=== PATIENT | male | born 1950 | race Caucasian/White ===

== ENCOUNTER 2018-01-01 15:45 | Emergency (ER) | payer MEDICARE, MEDICAID ==
[~2018-01-01] VITALS: Ht 170.2 cm; Wt 70.0 kg
[2018-01-01] MEDS ORDERED: ACETAMINOPHEN 325MG TABLET PO ONE (18:45)
[2018-01-01] MEDS ORDERED: KETOROLAC 15MG/ML VIAL IV ONE (18:45)
[2018-01-01] MEDS ORDERED: SODIUM CHLORIDE 0.9% 1000ML BAG (SEPSIS BOLUS) IV ONE (18:45)
[2018-01-01] MEDS: SODIUM CHLORIDE 0.9% 2,100 ML IV SCH ×2 (19:15→19:23)
[2018-01-01 19:44] LABS: BASOPHILS % 0.6 % (0.0-2.0); EOSINOPHILS % 0.9 % (0.0-5.0); HEMATOCRIT. 32.8 % (42.0-52.0); HEMOGLOBIN. 11.3 g/dL (14.0-18.0); LYMPHOCYTES % 19.9 % (20.0-50.0); MEAN CORPUSCULAR HEMOGLOBIN 29.8 pg (28.0-32.0); MEAN CORPUSCULAR VOLUME 86.3 fL (80.0-94.0); MEAN PLATELET VOLUME 9.3 fl (7.4-10.4); MONOCYTES % 3.9 % (2.0-8.0); NEUTROPHILS % 74.7 % (40.0-76.0); PLATELET 171 x1000/uL (130-400); RED CELL DISTRIBUTION WIDTH 13.3 % (11.6-14.6)
[2018-01-01 19:47] LABS: CLARITY URINE CLEAR (CLEAR); COLOR URINE YELLOW (YELLOW); KETONES URINE NEGATIVE (NEGATIVE); LEUKOCYTE ESTERASE URINE NEGATIVE (NEGATIVE); NITRITE URINE NEGATIVE (NEGATIVE); OCCULT BLOOD URINE NEGATIVE (NEGATIVE); PH URINE >=9.0 (4.5-8.0); PROTEIN URINE NEGATIVE (NEGATIVE); SPECIFIC GRAVITY URINE 1.016 (1.005-1.030); UROBILINOGEN URINE 0.2 E.U./dL (0.2-1.0)
[2018-01-01 19:48] LABS: CHLORIDE 103 mEq/L (98-107)
[2018-01-01 20:11] LABS: INR 1.1; PROTHROMBIN TIME 11.4 sec (9.4-11.6)
[2018-01-01] MEDS ORDERED: MORPHINE SULFATE 2 MG/ML CPJ (NOT FOR IM USE) IV ONE (21:45)
[2018-01-01 22:08] VITALS: BP 112/59
== END 2018-01-01 22:16 | disposition home or self-care (01) ==
LOC: ER 16:06 → CANBEDREQ 23:21
DX: R10.84 Generalized abdominal pain (principal); M79.1 Myalgia; G89.29 Other chronic pain; M54.5 Low back pain; R42 Dizziness and giddiness; D64.9 Anemia, unspecified; M19.90 Unspecified osteoarthritis, unspecified site; I10 Essential (primary) hypertension
CPT/HCPCS: 36415; 71045; 74176; 80053; 81003; 83605; 83690; 85025; 85610; 87040; 87086; 93005; 96374; 96375; 99285; J1885; J2270; J7030

== ENCOUNTER 2019-07-28 22:19 | Inpatient (IN) | payer MEDICARE, MEDICAID ==
[~2019-07-28] VITALS: Ht 175.3 cm; Wt 65.4 kg
[~2019-07-28 22:19] MED LIST: FLUO20CA39 MT; LISI-604 MT
[2019-07-28] MEDS ORDERED: SODIUM CHLORIDE 0.9% 1,000 ML IV ONE (23:22)
[2019-07-28] MEDS ORDERED: ONDANSETRON HCL 4MG/2ML INJ IV STA (23:22)
[2019-07-29] VITALS (33 sets, daily range): BP systolic 99–172; BP diastolic 52–118
[2019-07-29 00:06] LABS: BASOPHILS % 1.2 % (0.0-2.0); EOSINOPHILS % 3.6 % (0.0-5.0); HEMATOCRIT. 34.7 % (42.0-52.0); HEMOGLOBIN. 12.2 g/dL (14.0-18.0); LYMPHOCYTES % 26.6 % (20.0-50.0); MEAN CORPUSCULAR HEMOGLOBIN 29.9 pg (28.0-32.0); MEAN CORPUSCULAR VOLUME 85.1 fL (80.0-94.0); MEAN PLATELET VOLUME 9.4 fl (7.4-10.4); NEUTROPHILS % 62.6 % (40.0-76.0); PLATELET 160 x1000/uL (130-400); RED BLOOD CELL COUNT 4.07 mill/uL (4.7-6.1); RED CELL DISTRIBUTION WIDTH 13.5 % (11.6-14.6)
[2019-07-29 00:19] LABS: CHLORIDE 86 mEq/L (98-107)
[2019-07-29] MEDS ORDERED: SODIUM CHLORIDE 0.9% 1,000 ML IV ONE (01:30)
[2019-07-29] MEDS ORDERED: ONDANSETRON HCL 4MG/2ML INJ IV ONE (06:30)
[2019-07-29 06:59] LABS: CHLORIDE 87 mEq/L (98-107)
[2019-07-29] MEDS: MORPHINE SULFATE 2 MG/ML CPJ (NOT FOR IM USE) IV PRN ×2 (10:28→20:48)
[2019-07-29] MEDS ORDERED: LORAZEPAM 0.5MG TABLET PO PRN (10:45)
[2019-07-29] MEDS ORDERED: IPRATROPIUM/ALBUTEROL 0.5-3(2.5)MG/3ML NEB NEB PRN (10:45)
[2019-07-29] MEDS ORDERED: CLONIDINE 0.1MG TABLET PO PRN (10:45)
[2019-07-29] MEDS ORDERED: NA PHOS,M-B/NA PHOS,DI-BA ENEMA 118ML PR PRN (10:45)
[2019-07-29] MEDS ORDERED: MAGNESIUM/ALUMINUM HYDROXIDE/SIMETHICONE 30ML UDC PO PRN (10:45)
[2019-07-29] MEDS ORDERED: SODIUM CHLORIDE 0.9% 1,000 ML IV SCH (10:45)
[2019-07-29] MEDS ORDERED: GUAIFENESIN 200MG/10ML SUGAR FREE UDC PO PRN (10:45)
[2019-07-29] MEDS ORDERED: ACETAMINOPHEN 325MG TABLET PO PRN (10:45)
[2019-07-29] MEDS ORDERED: ACETAMINOPHEN 650MG SUPP PR PRN (10:45)
[2019-07-29] MEDS ORDERED: DOCUSATE SODIUM 100MG CAPSULE PO PRN (10:45)
[2019-07-29] MEDS ORDERED: DIPHENHYDRAMINE 50MG/ML VIAL IV PRN (10:45)
[2019-07-29 11:19] LABS: BG BASE EXCESS -2.7 mmol/L (-2.0-2.0); BG CARBOXYHEMOGLOBIN 0.4 % (0.5-1.5); BG DEOXYHEMOGLOBIN 2.7 % (0.0-5.0); BG FRACTION INSPIRED OXYGEN 21; BG HCO3 ACT 21.1 mmol/L (22.0-26.0); BG METHEMOGLOBIN 0.3 % (0.0-1.5); BG OXYGEN SATURATION 97.3 % (92.0-98.5); BG OXYHEMOGLOBIN 96.6 % (94.0-97.0); BG PCO2 33.6 mmHg (35.0-45.0); BG PH 7.416 (7.350-7.450); BG PO2 94.2 mmHg (75.0-100.0); BG SAMPLE SITE RIGHT RADIAL; BG TOTAL HEMOGLOBIN 11.9 g/dL (12.0-18.0); BG VENT MODE ROOM AIR
[2019-07-29] MEDS: ONDANSETRON HCL 4MG/2ML INJ IV PRN (12:21)
[2019-07-29] MEDS ORDERED: SODIUM CHLORIDE 3% 500 ML IV SCH (12:30)
[2019-07-29 14:37] LABS: CLARITY URINE CLEAR (CLEAR); COLOR URINE YELLOW (YELLOW); KETONES URINE 1+ (NEGATIVE); LEUKOCYTE ESTERASE URINE NEGATIVE (NEGATIVE); NITRITE URINE NEGATIVE (NEGATIVE); OCCULT BLOOD URINE 1+ (NEGATIVE); PH URINE 7.5 (4.5-8.0); PROTEIN URINE NEGATIVE (NEGATIVE); SPECIFIC GRAVITY URINE 1.012 (1.005-1.030); UROBILINOGEN URINE 0.2 E.U./dL (0.2-1.0)
[2019-07-29 14:38] LABS: PHOSPHORUS 2.9 mg/dL (2.5-4.9)
[2019-07-29] MEDS ORDERED: MAGNESIUM 1 G PREMIX 100 ML IV SCH (15:15)
[2019-07-29 15:20] LABS: SODIUM URINE RANDOM 153 mEq/L
[2019-07-29 15:26] LABS: *BARBITURATES SCREEN URINE NEGATIVE (NEGATIVE); *BENZODIAZEPINES SCREEN URINE NEGATIVE (NEGATIVE)
[2019-07-29 15:27] LABS: *AMPHETAMINES SCREEN URINE NEGATIVE (NEGATIVE); *COCAINE SCREEN URINE NEGATIVE (NEGATIVE); CANNABINOID URINE SCREEN NEGATIVE (NEGATIVE); METHADONE URINE SCREEN NEGATIVE (NEGATIVE); OPIATES URINE SCREEN PRESUMTIVE POSITIVE (NEGATIVE)
[2019-07-29 15:28] LABS: PHENCYCLIDINE URINE SCREEN NEGATIVE (NEGATIVE)
[2019-07-29 17:26] LABS: CHLORIDE 89 mEq/L (98-107)
[2019-07-29] MEDS ORDERED: SODIUM CHLORIDE 3% 500 ML IV NR (18:45)
[2019-07-29] MEDS: DEXT 5%/0.9% NACL 1,000 ML IV SCH (18:57)
[2019-07-29 19:42] LABS: CHLORIDE 89 mEq/L (98-107)
[2019-07-29] MEDS ORDERED: FUROSEMIDE 40MG/4ML VIAL IVP SCH (21:00)
[2019-07-30] VITALS (29 sets, daily range): BP systolic 85–155; BP diastolic 37–89
[2019-07-30 00:08] LABS: CHLORIDE 92 mEq/L (98-107)
[2019-07-30] MEDS: MORPHINE SULFATE 2 MG/ML CPJ (NOT FOR IM USE) IV PRN ×2 (02:42→12:04)
[2019-07-30 05:51] LABS: CHLORIDE 94 mEq/L (98-107)
[2019-07-30 06:01] LABS: LDL CHOLESTEROL 118 mg/dL (5-100)
[2019-07-30 06:03] LABS: T4 FREE 0.48 ng/dL (0.76-1.46)
[2019-07-30 06:04] LABS: HDL CHOLESTEROL 56 mg/dL (40-59)
[2019-07-30 06:05] LABS: BASOPHILS % 1.1 % (0.0-2.0); EOSINOPHILS % 2.3 % (0.0-5.0); HEMATOCRIT. 30.2 % (42.0-52.0); HEMOGLOBIN. 10.9 g/dL (14.0-18.0); LYMPHOCYTES % 25.9 % (20.0-50.0); MEAN CORPUSCULAR HEMOGLOBIN 30.5 pg (28.0-32.0); MEAN CORPUSCULAR VOLUME 84.9 fL (80.0-94.0); MEAN PLATELET VOLUME 9.9 fl (7.4-10.4); MONOCYTES % 9.5 % (2.0-8.0); NEUTROPHILS % 61.2 % (40.0-76.0); PLATELET 134 x1000/uL (130-400); RED BLOOD CELL COUNT 3.56 mill/uL (4.7-6.1); RED CELL DISTRIBUTION WIDTH 13.5 % (11.6-14.6)
[2019-07-30] MEDS: DEXT 5%/0.9% NACL 1,000 ML IV SCH ×2 (06:16→18:23)
[2019-07-30] MEDS: FAMOTIDINE 20MG/2ML VIAL IV SCH (09:35)
[2019-07-30] MEDS: ONDANSETRON HCL 4MG/2ML INJ IV PRN ×2 (10:19→20:27)
[2019-07-30 14:21] LABS: CHLORIDE 95 mEq/L (98-107)
[2019-07-30 16:06] LABS: SODIUM URINE (RAW) 114 mEq/L; SODIUM URINE 24 HR 210 mEq/24hr (40-220)
[2019-07-30 17:51] LABS: CHLORIDE 94 mEq/L (98-107); INR 1.1
[2019-07-30] MEDS: HYDROCODONE/ACETAMINOPHEN 5/325MG TABLET PO PRN (18:25)
[2019-07-31] VITALS: BP 111/50
[2019-07-31] MEDS: DEXT 5%/0.9% NACL 1,000 ML IV SCH ×2 (01:54→13:58)
[2019-07-31 04:00] VITALS: BP 104/47
[2019-07-31 08:10] VITALS: BP 137/55
[2019-07-31] MEDS: FAMOTIDINE 20MG/2ML VIAL IV SCH (09:30)
[2019-07-31 10:30] LABS: CHLORIDE 95 mEq/L (98-107)
[2019-07-31] MEDS: HYDROCODONE/ACETAMINOPHEN 5/325MG TABLET PO PRN (11:29)
[2019-07-31 12:23] VITALS: BP 138/54
[2019-07-31 16:41] VITALS: BP 109/67
[2019-07-31] MEDS: MORPHINE SULFATE 2 MG/ML CPJ (NOT FOR IM USE) IV PRN (19:51)
[2019-07-31 20:00] VITALS: BP 119/61
[2019-07-31] MEDS ORDERED: POTASSIUM CHLORIDE 20MEQ/PACKET PO SCH (22:00)
[2019-08-01] VITALS: BP 110/47
[2019-08-01 04:00] VITALS: BP 106/48
[2019-08-01] MEDS: DEXT 5%/0.9% NACL 1,000 ML IV SCH (06:03)
[2019-08-01] MEDS: SODIUM CHLORIDE 1000MG TABLET PO SCH ×4 (08:33→20:52)
[2019-08-01] MEDS: FAMOTIDINE 20MG/2ML VIAL IV SCH (08:35)
[2019-08-01 09:26] LABS: PHOSPHORUS 2.3 mg/dL (2.5-4.9)
[2019-08-01] MEDS: HYDROCODONE/ACETAMINOPHEN 5/325MG TABLET PO PRN (10:08)
[2019-08-01 12:00] VITALS: BP 133/58
[2019-08-01] MEDS: MORPHINE SULFATE 2 MG/ML CPJ (NOT FOR IM USE) IV PRN (17:21)
[2019-08-01 20:00] VITALS: BP 112/52
[2019-08-01] MEDS: ONDANSETRON HCL 4MG/2ML INJ IV PRN (20:57)
[2019-08-02] VITALS: BP 122/54
[2019-08-02] MEDS: MORPHINE SULFATE 2 MG/ML CPJ (NOT FOR IM USE) IV PRN ×2 (02:11→20:35)
[2019-08-02 04:00] VITALS: BP 133/57
[2019-08-02 08:06] VITALS: BP 133/63
[2019-08-02] MEDS: DEXT 5%/0.9% NACL 1,000 ML IV SCH (08:13)
[2019-08-02] MEDS: SODIUM CHLORIDE 1000MG TABLET PO SCH ×4 (09:00→20:35)
[2019-08-02] MEDS: FAMOTIDINE 20MG/2ML VIAL IV SCH (09:13)
[2019-08-02 12:06] VITALS: BP 133/59
[2019-08-02] MEDS: SODIUM CHLORIDE 0.9% 1,000 ML IV SCH (14:37)
[2019-08-02] MEDS: HYDROCODONE/ACETAMINOPHEN 5/325MG TABLET PO PRN ×2 (14:52→22:14)
[2019-08-02 15:52] LABS: BASOPHILS % 1.4 % (0.0-2.0); EOSINOPHILS % 10.8 % (0.0-5.0); HEMATOCRIT. 31.6 % (42.0-52.0); HEMOGLOBIN. 11.1 g/dL (14.0-18.0); LYMPHOCYTES % 24.2 % (20.0-50.0); MEAN CORPUSCULAR HEMOGLOBIN 30.4 pg (28.0-32.0); MEAN CORPUSCULAR VOLUME 86.4 fL (80.0-94.0); MEAN PLATELET VOLUME 9.3 fl (7.4-10.4); MONOCYTES % 7.3 % (2.0-8.0); NEUTROPHILS % 56.3 % (40.0-76.0); PLATELET 171 x1000/uL (130-400); RED BLOOD CELL COUNT 3.66 mill/uL (4.7-6.1); RED CELL DISTRIBUTION WIDTH 13.3 % (11.6-14.6)
[2019-08-02 16:08] VITALS: BP 130/60
[2019-08-02 17:33] LABS: CHLORIDE 94 mEq/L (98-107)
[2019-08-02 20:00] VITALS: BP 126/60
[2019-08-02] MEDS: ONDANSETRON HCL 4MG/2ML INJ IV PRN (20:35)
[2019-08-03] VITALS: BP 142/55
[2019-08-03] MEDS: SODIUM CHLORIDE 0.9% 1,000 ML IV SCH ×3 (03:18→05:40)
[2019-08-03 04:00] VITALS: BP 112/52
[2019-08-03 07:12] LABS: BASOPHILS % 1.8 % (0.0-2.0); EOSINOPHILS % 10.8 % (0.0-5.0); HEMATOCRIT. 29.3 % (42.0-52.0); HEMOGLOBIN. 10.5 g/dL (14.0-18.0); LYMPHOCYTES % 31.9 % (20.0-50.0); MEAN CORPUSCULAR HEMOGLOBIN 30.4 pg (28.0-32.0); MEAN CORPUSCULAR VOLUME 85.2 fL (80.0-94.0); MEAN PLATELET VOLUME 9.1 fl (7.4-10.4); MONOCYTES % 9.9 % (2.0-8.0); NEUTROPHILS % 45.6 % (40.0-76.0); PLATELET 166 x1000/uL (130-400); RED BLOOD CELL COUNT 3.44 mill/uL (4.7-6.1); RED CELL DISTRIBUTION WIDTH 13.1 % (11.6-14.6)
[2019-08-03 08:00] VITALS: BP 123/58
[2019-08-03 08:00] LABS: CHLORIDE 95 mEq/L (98-107)
[2019-08-03] MEDS: FAMOTIDINE 20MG/2ML VIAL IV SCH (09:33)
[2019-08-03] MEDS: SODIUM CHLORIDE 1000MG TABLET PO SCH ×4 (09:33→21:13)
[2019-08-03 12:00] VITALS: BP 133/61
[2019-08-03 16:00] VITALS: BP 147/66
[2019-08-03 18:16] LABS: CHLORIDE 94 mEq/L (98-107)
[2019-08-03 20:00] VITALS: BP 134/64
[2019-08-03] MEDS: HYDROCODONE/ACETAMINOPHEN 5/325MG TABLET PO PRN (21:23)
[2019-08-04] VITALS (7 sets, daily range): BP systolic 117–132; BP diastolic 54–60
[2019-08-04] MEDS: SODIUM CHLORIDE 0.9% 1,000 ML IV SCH (02:37)
[2019-08-04 06:53] LABS: CHLORIDE 96 mEq/L (98-107)
[2019-08-04 08:16] LABS: BASOPHILS % 1.2 % (0.0-2.0); EOSINOPHILS % 11.6 % (0.0-5.0); HEMOGLOBIN. 10.4 g/dL (14.0-18.0); LYMPHOCYTES % 28.8 % (20.0-50.0); MEAN CORPUSCULAR HEMOGLOBIN 30.9 pg (28.0-32.0); MEAN CORPUSCULAR VOLUME 85.8 fL (80.0-94.0); MEAN PLATELET VOLUME 8.9 fl (7.4-10.4); NEUTROPHILS % 50.4 % (40.0-76.0); PLATELET 179 x1000/uL (130-400); RED BLOOD CELL COUNT 3.38 mill/uL (4.7-6.1); RED CELL DISTRIBUTION WIDTH 13.2 % (11.6-14.6)
[2019-08-04] MEDS: FAMOTIDINE 20MG/2ML VIAL IV SCH (09:08)
[2019-08-04] MEDS: SODIUM CHLORIDE 1000MG TABLET PO SCH ×4 (09:08→21:37)
[2019-08-04] MEDS ORDERED: SODIUM CHLORIDE 3% 500 ML IV NR (11:00)
[2019-08-04] MEDS: HYDROCODONE/ACETAMINOPHEN 5/325MG TABLET PO PRN ×2 (15:30→21:53)
[2019-08-04 16:31] LABS: CHLORIDE 97 mEq/L (98-107)
== END 2019-08-04 22:05 | DRG 641 ==
LOC: ER 22:19 → MICUSO 07-29 01:34 → EDBEDREQSVC 07-29 01:45 → EDBEDREQ 07-29 01:45 → EDBEDREQDT 07-29 01:45 → EDBEDREQTM 07-29 01:45 → ENRESERV 07-29 08:25 → 6WST 07-30 12:15
PROVIDERS: ADMIT Internal Medicine; ATTEND Internal Medicine
DX: E87.1 Hypo-osmolality and hyponatremia (principal); D64.9 Anemia, unspecified; I10 Essential (primary) hypertension; M17.0 Bilateral primary osteoarthritis of knee; F41.9 Anxiety disorder, unspecified; G89.29 Other chronic pain; M54.2 Cervicalgia; M54.9 Dorsalgia, unspecified; E83.42 Hypomagnesemia; E16.2 Hypoglycemia, unspecified; Z85.841 Personal history of malignant neoplasm of brain; Z79.899 Other long term (current) drug therapy
CPT/HCPCS: 36415; 36600; 71045; 73560; 73721; 74176; 80048; 80051; 80053; 80061; 80305; 81003; 82375; 82805; 82962; 83605; 83735; 83930; 83935; 84100; 84300; 84439; 84443; 84484; 85025; 86850; 86900; 93005; 93306; 93970; 97162; 97165; 99291; J1940; J2270; J2405; J3475; J3490; J7030; J7042

== ENCOUNTER 2019-10-01 23:25 | Inpatient (IN) | payer MEDICARE, MEDICAID ==
[~2019-10-01] VITALS: Ht 172.7 cm; Wt 60.4 kg
[2019-10-02] VITALS (9 sets, daily range): BP systolic 108–145; BP diastolic 53–101
[2019-10-02] MEDS ORDERED: ONDANSETRON HCL 4MG/2ML INJ IV STA (00:18)
[2019-10-02] MEDS ORDERED: MORPHINE SULFATE 4 MG/ML CPJ (NOT FOR IM USE) IV STA (00:18)
[2019-10-02] MEDS ORDERED: KETOROLAC 30MG/ML VIAL IV STA (00:18)
[2019-10-02] MEDS ORDERED: SODIUM CHLORIDE 0.9% 1,000 ML IV ONE (00:18)
[2019-10-02 00:37] LABS: BASOPHILS % 1.8 % (0.0-2.0); EOSINOPHILS % 2.5 % (0.0-5.0); HEMATOCRIT. 32.6 % (42.0-52.0); HEMOGLOBIN. 11.4 g/dL (14.0-18.0); LYMPHOCYTES % 29.5 % (20.0-50.0); MEAN CORPUSCULAR HEMOGLOBIN 29.6 pg (28.0-32.0); MEAN CORPUSCULAR VOLUME 84.9 fL (80.0-94.0); MEAN PLATELET VOLUME 9.5 fl (7.4-10.4); MONOCYTES % 5.1 % (2.0-8.0); NEUTROPHILS % 61.1 % (40.0-76.0); PLATELET 208 x1000/uL (130-400); RED BLOOD CELL COUNT 3.84 mill/uL (4.7-6.1); RED CELL DISTRIBUTION WIDTH 14.4 % (11.6-14.6)
[2019-10-02 00:43] LABS: CHLORIDE 91 mEq/L (98-107)
[2019-10-02] MEDS ORDERED: ONDANSETRON HCL 4MG/2ML INJ IV NR (01:45)
[2019-10-02] MEDS ORDERED: DEXTROSE 50% WATER 50ML SYRINGE IV NR (01:45)
[2019-10-02] MEDS ORDERED: METOCLOPRAMIDE HCL 10MG/2ML VIAL IV NR (01:45)
[2019-10-02] MEDS ORDERED: MAGNESIUM CITRATE 300ML SOLUTION PO NR (03:45)
[2019-10-02] MEDS ORDERED: SODIUM CHLORIDE 0.9% 500 ML IV NR (03:45)
[2019-10-02] MEDS ORDERED: DEXTROSE 50% WATER 50ML SYRINGE IV ONE ×4 (04:47→17:58)
[2019-10-02] MEDS ORDERED: DEXT 5%/0.9% NACL 1,000 ML IV ONE (05:30)
[2019-10-02] MEDS ORDERED: SORBITOL 70% SOLN 30ML PO SCH (11:15)
[2019-10-02] MEDS ORDERED: BISACODYL 10MG SUPP PR PRN (11:15)
[2019-10-02] MEDS ORDERED: DEXT 5%/0.9% NACL 1,000 ML IV SCH (11:15)
[2019-10-02] MEDS ORDERED: SODIUM CHLORIDE 0.9% 500 ML IV ONE (12:00)
[2019-10-02] MEDS: DOCUSATE SODIUM 250MG CAPSULE PO SCH (12:25)
[2019-10-02 16:04] LABS: CHLORIDE 95 mEq/L (98-107)
[2019-10-02] MEDS: ONDANSETRON HCL 4MG/2ML INJ IV PRN (17:38)
[2019-10-02] MEDS ORDERED: DEXT 10% WATER 1,000 ML IV SCH (18:30)
[2019-10-02] MEDS: DEXTROSE 50% WATER 50ML SYRINGE IV PRN ×2 (18:48→21:18)
[2019-10-02] MEDS: ACETAMINOPHEN 325MG TABLET PO PRN (20:24)
[2019-10-03] VITALS (14 sets, daily range): BP systolic 102–149; BP diastolic 51–77
[2019-10-03] MEDS: DEXTROSE 5% WATER 1,000 ML IV SCH (00:34)
[2019-10-03] MEDS: SODIUM CHLORIDE 0.9% 1,000 ML IV SCH ×2 (00:35→13:19)
[2019-10-03 06:20] LABS: EOSINOPHILS % 4.1 % (0.0-5.0); HEMATOCRIT. 26.9 % (42.0-52.0); HEMOGLOBIN. 9.6 g/dL (14.0-18.0); LYMPHOCYTES % 33.5 % (20.0-50.0); MEAN CORPUSCULAR HEMOGLOBIN 30.2 pg (28.0-32.0); MEAN CORPUSCULAR VOLUME 84.5 fL (80.0-94.0); MEAN PLATELET VOLUME 10.1 fl (7.4-10.4); MONOCYTES % 7.4 % (2.0-8.0); PLATELET 153 x1000/uL (130-400); RED BLOOD CELL COUNT 3.18 mill/uL (4.7-6.1); RED CELL DISTRIBUTION WIDTH 14.1 % (11.6-14.6)
[2019-10-03 06:22] LABS: CHLORIDE 96 mEq/L (98-107)
[2019-10-03 07:09] LABS: CLARITY URINE CLEAR (CLEAR); COLOR URINE YELLOW (YELLOW); KETONES URINE NEGATIVE (NEGATIVE); LEUKOCYTE ESTERASE URINE TRACE (NEGATIVE); NITRITE URINE NEGATIVE (NEGATIVE); OCCULT BLOOD URINE 2+ (NEGATIVE); PROTEIN URINE NEGATIVE (NEGATIVE)
[2019-10-03] MEDS: ACETAMINOPHEN 325MG TABLET PO PRN ×2 (08:54→18:39)
[2019-10-03] MEDS: DOCUSATE SODIUM 250MG CAPSULE PO SCH (09:00)
[2019-10-03] MEDS: BLOOD SUGAR DIAGNOSTIC STRIP TEST SCH ×3 (13:14→20:43)
[2019-10-03] MEDS: DEXTROSE 50% WATER 50ML SYRINGE IV PRN (17:17)
[2019-10-04] VITALS (14 sets, daily range): BP systolic 118–157; BP diastolic 61–74
[2019-10-04] MEDS: SODIUM CHLORIDE 0.9% 1,000 ML IV SCH (00:23)
[2019-10-04] MEDS: DEXTROSE 5% WATER 1,000 ML IV SCH (00:23)
[2019-10-04 06:33] LABS: BASOPHILS % 1.6 % (0.0-2.0); HEMATOCRIT. 26.6 % (42.0-52.0); HEMOGLOBIN. 9.4 g/dL (14.0-18.0); LYMPHOCYTES % 38.5 % (20.0-50.0); MEAN CORPUSCULAR HEMOGLOBIN 29.9 pg (28.0-32.0); MEAN CORPUSCULAR VOLUME 84.1 fL (80.0-94.0); MEAN PLATELET VOLUME 10.1 fl (7.4-10.4); MONOCYTES % 7.5 % (2.0-8.0); NEUTROPHILS % 45.4 % (40.0-76.0); PLATELET 159 x1000/uL (130-400); RED BLOOD CELL COUNT 3.16 mill/uL (4.7-6.1); RED CELL DISTRIBUTION WIDTH 13.8 % (11.6-14.6)
[2019-10-04 06:55] LABS: CHLORIDE 91 mEq/L (98-107)
[2019-10-04] MEDS: BLOOD SUGAR DIAGNOSTIC STRIP TEST SCH ×4 (08:01→21:00)
[2019-10-04] MEDS: DOCUSATE SODIUM 250MG CAPSULE PO SCH (09:00)
[2019-10-04] MEDS: ONDANSETRON HCL 4MG/2ML INJ IV PRN ×2 (09:00→17:31)
[2019-10-04] MEDS ORDERED: SODIUM CHLORIDE 3% 500 ML IV ONE (12:00)
[2019-10-04] MEDS: ACETAMINOPHEN 325MG TABLET PO PRN (12:42)
[2019-10-04] MEDS ORDERED: DIPHENHYDRAMINE 25MG CAPSULE PO NR (15:15)
[2019-10-04] MEDS ORDERED: LACTULOSE 20G/30ML UDC PO PRN (15:15)
[2019-10-04] MEDS ORDERED: FUROSEMIDE 40MG/4ML VIAL IVP NR (17:00)
[2019-10-04 17:09] LABS: CHLORIDE 90 mEq/L (98-107)
[2019-10-04 18:02] LABS: INR 1.1
[2019-10-04] MEDS: DEXTROSE 50% WATER 50ML SYRINGE IV PRN (21:19)
[2019-10-04] MEDS: HYDROCODONE/ACETAMINOPHEN 5/325MG TABLET PO PRN (22:37)
[2019-10-04 23:47] LABS: CHLORIDE 89 mEq/L (98-107)
[2019-10-05] VITALS (12 sets, daily range): BP systolic 111–143; BP diastolic 55–77
[2019-10-05] MEDS: DEXT 5%/0.9% NACL 1,000 ML IV SCH (03:45)
[2019-10-05 06:47] LABS: HEMATOCRIT 29.7 % (42.0-52.0); HEMOGLOBIN 10.5 g/dL (14.0-18.0); MEAN CORPUSCULAR VOLUME 84.6 fL (80.0-94.0); PLATELET 167 x1000/uL (130-400); RED BLOOD CELL COUNT 3.51 mill/uL (4.7-6.1); RED CELL DISTRIBUTION WIDTH 13.9 % (11.6-14.6)
[2019-10-05 07:09] LABS: CHLORIDE 90 mEq/L (98-107)
[2019-10-05] MEDS: BLOOD SUGAR DIAGNOSTIC STRIP TEST SCH ×4 (07:58→21:58)
[2019-10-05] MEDS: DOCUSATE SODIUM 250MG CAPSULE PO SCH (09:02)
[2019-10-05] MEDS ORDERED: SODIUM CHLORIDE 3% 500 ML IV NR (12:00)
[2019-10-05 13:35] LABS: SODIUM URINE RANDOM 149 mEq/L
[2019-10-05 15:50] LABS: CHLORIDE 91 mEq/L (98-107)
[2019-10-05] MEDS: HYDROCODONE/ACETAMINOPHEN 5/325MG TABLET PO PRN ×2 (16:22→21:57)
[2019-10-05] MEDS: DEXTROSE 50% WATER 50ML SYRINGE IV PRN ×2 (16:27→21:58)
[2019-10-05] MEDS ORDERED: BLOOD SUGAR DIAGNOSTIC STRIP TEST SCH (17:30)
[2019-10-06] VITALS (11 sets, daily range): BP systolic 101–137; BP diastolic 50–68
[2019-10-06] MEDS: DEXT 5%/0.9% NACL 1,000 ML IV SCH (00:18)
[2019-10-06] MEDS ORDERED: FUROSEMIDE 40MG/4ML VIAL IV SCH (01:00)
[2019-10-06] MEDS: BLOOD SUGAR DIAGNOSTIC STRIP TEST SCH ×6 (02:00→22:14)
[2019-10-06] MEDS: DEXTROSE 50% WATER 50ML SYRINGE IV PRN ×2 (02:25→06:41)
[2019-10-06 07:05] LABS: BASOPHILS % 2.3 % (0.0-2.0); EOSINOPHILS % 10.1 % (0.0-5.0); HEMATOCRIT. 30.9 % (42.0-52.0); HEMOGLOBIN. 10.8 g/dL (14.0-18.0); LYMPHOCYTES % 32.5 % (20.0-50.0); MEAN CORPUSCULAR HEMOGLOBIN 29.5 pg (28.0-32.0); MEAN CORPUSCULAR VOLUME 84.7 fL (80.0-94.0); MEAN PLATELET VOLUME 9.4 fl (7.4-10.4); MONOCYTES % 6.6 % (2.0-8.0); NEUTROPHILS % 48.5 % (40.0-76.0); PLATELET 185 x1000/uL (130-400); RED BLOOD CELL COUNT 3.65 mill/uL (4.7-6.1); RED CELL DISTRIBUTION WIDTH 14.2 % (11.6-14.6)
[2019-10-06 07:21] LABS: CHLORIDE 94 mEq/L (98-107)
[2019-10-06 07:28] LABS: PHOSPHORUS 2.6 mg/dL (2.5-4.9)
[2019-10-06] MEDS: DOCUSATE SODIUM 250MG CAPSULE PO SCH (09:00)
[2019-10-06] MEDS ORDERED: SODIUM CHLORIDE 3% 500 ML IV SCH (11:00)
[2019-10-06] MEDS ORDERED: COSYNTROPIN 0.25MG/ML VIAL IV NR (12:00)
[2019-10-06] MEDS: SODIUM CHLORIDE 3% 500 ML IV SCH (12:34)
[2019-10-06] MEDS: HYDROCODONE/ACETAMINOPHEN 5/325MG TABLET PO PRN ×2 (14:30→22:04)
[2019-10-06 16:55] LABS: CHLORIDE 95 mEq/L (98-107)
[2019-10-07] VITALS: BP 102/58
[2019-10-07] MEDS: BLOOD SUGAR DIAGNOSTIC STRIP TEST SCH ×5 (02:13→18:00)
[2019-10-07 04:00] VITALS: BP 110/56
[2019-10-07 05:53] LABS: CHLORIDE 99 mEq/L (98-107)
[2019-10-07 06:07] LABS: T4 FREE 0.51 ng/dL (0.76-1.46)
[2019-10-07 06:28] LABS: BASOPHILS % 0.9 % (0.0-2.0); EOSINOPHILS % 5.8 % (0.0-5.0); HEMATOCRIT. 27.4 % (42.0-52.0); HEMOGLOBIN. 9.6 g/dL (14.0-18.0); LYMPHOCYTES % 23.8 % (20.0-50.0); MEAN CORPUSCULAR HEMOGLOBIN 29.8 pg (28.0-32.0); MEAN CORPUSCULAR VOLUME 84.8 fL (80.0-94.0); MONOCYTES % 8.5 % (2.0-8.0); PLATELET 184 x1000/uL (130-400); RED BLOOD CELL COUNT 3.23 mill/uL (4.7-6.1); RED CELL DISTRIBUTION WIDTH 14.3 % (11.6-14.6)
[2019-10-07 08:02] VITALS: BP 113/62
[2019-10-07] MEDS: DOCUSATE SODIUM 250MG CAPSULE PO SCH (08:50)
[2019-10-07] MEDS: SODIUM CHLORIDE 3% 500 ML IV SCH (10:29)
[2019-10-07 12:02] VITALS: BP 107/61
[2019-10-07] MEDS ORDERED: LEVO25TA2 MT (15:41)
[2019-10-07] MEDS ORDERED: LEVOTHYROXINE SODIUM 25MCG TABLET PO NR (15:45)
[2019-10-07 15:49] VITALS: BP 118/71
[2019-10-07 16:55] VITALS: BP 115/61
== END 2019-10-07 19:15 | disposition home health service (06) | DRG 645 ==
LOC: ER 23:25 → 5EST 10-02 04:11 → ENRESERV 10-02 07:27
PROVIDERS: ADMIT Internal Medicine; ATTEND Internal Medicine
DX: E22.2 Syndrome of inappropriate secretion of antidiuretic hormone (principal); E16.2 Hypoglycemia, unspecified; D64.9 Anemia, unspecified; F41.9 Anxiety disorder, unspecified; I10 Essential (primary) hypertension; K59.00 Constipation, unspecified; M19.90 Unspecified osteoarthritis, unspecified site; R62.7 Adult failure to thrive; E03.9 Hypothyroidism, unspecified; F32.9 Major depressive disorder, single episode, unspecified; R26.89 Other abnormalities of gait and mobility; N28.1 Cyst of kidney, acquired; Z79.899 Other long term (current) drug therapy; T50.2X5A Adverse effect of carbonic-anhydrase inhibitors, benzothiadiazides and other diuretics, initial encounter; Z82.49 Family history of ischemic heart disease and other diseases of the circulatory system; Z68.20 Body mass index [BMI] 20.0-20.9, adult; Z87.891 Personal history of nicotine dependence; Z85.841 Personal history of malignant neoplasm of brain; Y92.89 Other specified places as the place of occurrence of the external cause
CPT/HCPCS: 36415; 71045; 74176; 80048; 80053; 81003; 82533; 82962; 83735; 83880; 83935; 84100; 84300; 84439; 84443; 84481; 84484; 85025; 85027; 93005; 97161; 97530; 99291; J0834; J1885; J1940; J2270; J2405; J2765; J7030; J7040; J7042; J7070; Q0163